=== PATIENT | female | born 1965 | race Caucasian/White ===

== ENCOUNTER 2022-04-21 16:53 | Inpatient (IN) ==
[2022-04-21] MEDS ORDERED: methylPREDNISolone SOD SUC 125 MG/2 ML VIAL IV STA (22:28)
[2022-04-21] MEDS ORDERED: FUROSEMIDE 100 MG/10 ML VIAL IV STA (22:28)
[2022-04-21] MEDS ORDERED: ONDANSETRON 4 MG/2 ML VIAL IV STA (22:28)
[2022-04-21] MEDS ORDERED: ALBUTEROL/IPRATROPIUM 3 ML NEB RESP TX STA (22:28)
[2022-04-21 23:27] LABS: Basophils % 0.1 % (0.0-0.8); Eosinophils % 0.1 % (0.00-10.9); Immature Granulocytes % 0.7 %; Immature Granulocytes Absolute 0.07 #; Lymphocytes # 1.3 10*3/uL (1.4-4.0); Lymphocytes % 13.2 % (21.3-54.2); Mean Corpuscular HGB Conc 34.3 GM/DL (32-36); Mean Corpuscular Volume 97.2 FL (87-102); Mean Platelet Volume 10.5 FL (9.6-12.0); Monocytes # 0.8 10*3/uL (0.11-0.8); Monocytes % 8.2 % (1.7-12.7); Neutrophils % 77.7 % (38.7-73.9); Platelet Count 241 T/CUMM (130-400); White Blood Count 9.9 T/CUMM (4-12)
[2022-04-21 23:50] LABS: Albumin 3.1 G/DL (3.4-5.0); Bilirubin,Total 1.3 MG/DL (0.20-1.00); Calcium 8.4 MG/DL (8.5-10.1); Osmolality,Calculated 275.7 MOS/KG (273-304); Potassium 4.3 MMOL/L (3.5-5.1); Total Protein 7.1 G/DL (6.4-8.2)
[2022-04-22] MEDS ORDERED: PIPERACILLIN/TAZOBACTAM 3,375 MG in SODIUM CHLORIDE 0.9% 100 ML IV STA (00:38)
[2022-04-22] MEDS ORDERED: ACETAMINOPHEN 325 MG TABLET PO PRN (03:26)
[2022-04-22] MEDS ORDERED: MORPHINE 2 MG/1 ML SYRINGE IV PRN (03:26)
[2022-04-22] MEDS ORDERED: ONDANSETRON 4 MG/2 ML VIAL IV PRN (03:26)
[2022-04-22] MEDS ORDERED: hydrALAZINE 20 MG/1 ML VIAL IV PRN (03:26)
[2022-04-22] MEDS ORDERED: GLUCAGON 1 MG VIAL IM PRN (03:26)
[2022-04-22] MEDS ORDERED: DEXTROSE 10% 250 ML BAG IV PRN (03:52)
[2022-04-22] MEDS: cefTRIAXone 1,000 MG in SODIUM CHLORIDE 0.9% 100 ML IV SCH (06:15)
[2022-04-22 06:23] LABS: Basophils % 0.1 % (0.0-0.8); Hematocrit 35.4 VOL% (35.7-47.0); Hemoglobin 12.2 GM/DL (12.0-16.0); Immature Granulocytes % 0.7 %; Immature Granulocytes Absolute 0.05 #; Lymphocytes # 0.6 10*3/uL (1.4-4.0); Lymphocytes % 7.5 % (21.3-54.2); Mean Corpuscular HGB Conc 34.5 GM/DL (32-36); Mean Corpuscular Volume 96.5 FL (87-102); Mean Platelet Volume 10.3 FL (9.6-12.0); Monocytes # 0.1 10*3/uL (0.11-0.8); Monocytes % 0.7 % (1.7-12.7); Platelet Count 244 T/CUMM (130-400); Red Blood Count 3.67 MC/CUMM (3.8-5.5); Red Cell Distribution Width 12.9 % (9.3-17.3); White Blood Count 7.6 T/CUMM (4-12)
[2022-04-22 06:44] LABS: Osmolality,Calculated 280.9 MOS/KG (273-304); Potassium 4.2 MMOL/L (3.5-5.1)
[2022-04-22] MEDS: AZITHROMYCIN INJ 500 MG in SODIUM CHLORIDE 0.9% 250 ML IV SCH (06:51)
[2022-04-22 06:56] LABS: Lymphocytes 7 % (20-55); Platelet Estimate Adequate; Total Cells Counted 100
[2022-04-22] MEDS: ALBUTEROL/IPRATROPIUM 3 ML NEB RESP TX SCH ×3 (07:00→19:35)
[2022-04-22] MEDS ORDERED: INSULIN LISPRO 100 UNIT/ML SUBCUT ONE (07:00)
[2022-04-22] MEDS ORDERED: INSULIN LISPRO 100 UNIT/ML SUBCUT SCH (07:30)
[2022-04-22 07:33] LABS: ABG Base Excess -4.5 MMOL/L (-2.5-2.5); ABG HCO3 20.6 MMOL/L (20-26); ABG Oxygen Saturation 93.6 % (95-100); ABG PCO2 32.7 MM HG (35-48); ABG PH 7.387 (7.35-7.45); ABG PO2 73.3 MM HG (80-95); ABG TCO2 17.6 MMOL/L (23-27)
[2022-04-22] MEDS: INSULIN LISPRO 100 UNIT/ML SUBCUT SCH ×4 (10:31→21:04)
[2022-04-22] MEDS: PANTOPRAZOLE 40 MG TABLET PO SCH (10:32)
[2022-04-22] MEDS ORDERED: ALBUTEROL/IPRATROPIUM 3 ML NEB RESP TX PRN (16:26)
[2022-04-22] MEDS: methylPREDNISolone SOD SUC 40 MG/1 ML VIAL IV SCH (17:52)
[2022-04-22] MEDS: ENOXAPARIN 40 MG/0.4 ML SYRINGE SUBCUT SCH (21:04)
[2022-04-22] MEDS: SIMVASTATIN 20 MG TABLET PO SCH (22:51)
[2022-04-23] MEDS: ALBUTEROL/IPRATROPIUM 3 ML NEB RESP TX SCH ×4 (00:05→20:37)
[2022-04-23] MEDS: methylPREDNISolone SOD SUC 40 MG/1 ML VIAL IV SCH ×4 (01:09→22:29)
[2022-04-23] MEDS: INSULIN LISPRO 100 UNIT/ML SUBCUT SCH ×6 (01:11→22:33)
[2022-04-23 03:55] LABS: Basophils % 0.1 % (0.0-0.8); Hematocrit 34.2 VOL% (35.7-47.0); Hemoglobin 11.8 GM/DL (12.0-16.0); Immature Granulocytes % 0.8 %; Immature Granulocytes Absolute 0.08 #; Lymphocytes # 0.8 10*3/uL (1.4-4.0); Lymphocytes % 7.2 % (21.3-54.2); Mean Corpuscular HGB Conc 34.5 GM/DL (32-36); Mean Corpuscular Volume 95.3 FL (87-102); Mean Platelet Volume 10.4 FL (9.6-12.0); Monocytes # 0.4 10*3/uL (0.11-0.8); Monocytes % 3.4 % (1.7-12.7); Neutrophils % 88.5 % (38.7-73.9); Platelet Count 283 T/CUMM (130-400); Red Blood Count 3.59 MC/CUMM (3.8-5.5); Red Cell Distribution Width 12.9 % (9.3-17.3); White Blood Count 10.4 T/CUMM (4-12)
[2022-04-23 04:14] LABS: Calcium 8.6 MG/DL (8.5-10.1); Osmolality,Calculated 294.7 MOS/KG (273-304); Potassium 3.7 MMOL/L (3.5-5.1)
[2022-04-23] MEDS: cefTRIAXone 1,000 MG in SODIUM CHLORIDE 0.9% 100 ML IV SCH (05:13)
[2022-04-23] MEDS: AZITHROMYCIN INJ 500 MG in SODIUM CHLORIDE 0.9% 250 ML IV SCH (05:42)
[2022-04-23] MEDS ORDERED: LEVOTHYROXINE 125 MCG TABLET PO SCH (06:30)
[2022-04-23] MEDS ORDERED: INSULIN LISPRO PROTAMINE/LISPRO 75/25 100 UNIT/ML SUBCUT SCH ×2 (07:30→16:30)
[2022-04-23] MEDS: PANTOPRAZOLE 40 MG TABLET PO SCH (08:43)
[2022-04-23] MEDS: CHOLECALCIFEROL 1,000 UNIT TABLET PO SCH (08:43)
[2022-04-23] MEDS: ASPIRIN CHEW 81 MG TABLET PO SCH (08:43)
[2022-04-23] MEDS: ISOSORBIDE MONONITRATE 60 MG TABLET PO SCH (08:44)
[2022-04-23] MEDS ORDERED: FUROSEMIDE 80 MG TABLET PO SCH (09:00)
[2022-04-23] MEDS ORDERED: lisinopriL 5 MG TABLET PO SCH (09:00)
[2022-04-23] MEDS: INSULIN LISPRO PROTAMINE/LISPRO 75/25 100 UNIT/ML SUBCUT SCH (16:55)
[2022-04-23] MEDS: ENOXAPARIN 40 MG/0.4 ML SYRINGE SUBCUT SCH (21:03)
[2022-04-23] MEDS: SIMVASTATIN 20 MG TABLET PO SCH (21:03)
[2022-04-24] MEDS: ALBUTEROL/IPRATROPIUM 3 ML NEB RESP TX SCH ×4 (02:03→19:20)
[2022-04-24] MEDS: INSULIN LISPRO 100 UNIT/ML SUBCUT SCH ×6 (02:35→21:14)
[2022-04-24] MEDS: methylPREDNISolone SOD SUC 40 MG/1 ML VIAL IV SCH ×2 (05:35→17:29)
[2022-04-24] MEDS: cefTRIAXone 1,000 MG in SODIUM CHLORIDE 0.9% 100 ML IV SCH (05:36)
[2022-04-24 05:45] LABS: Hematocrit 34.4 VOL% (35.7-47.0); Hemoglobin 11.6 GM/DL (12.0-16.0); Immature Granulocytes % 0.7 %; Immature Granulocytes Absolute 0.07 #; Lymphocytes # 1.1 10*3/uL (1.4-4.0); Lymphocytes % 11.2 % (21.3-54.2); Mean Corpuscular HGB Conc 33.7 GM/DL (32-36); Mean Corpuscular Volume 97.2 FL (87-102); Mean Platelet Volume 9.8 FL (9.6-12.0); Monocytes # 0.8 10*3/uL (0.11-0.8); Monocytes % 7.9 % (1.7-12.7); Neutrophils % 80.2 % (38.7-73.9); Platelet Count 315 T/CUMM (130-400); Red Blood Count 3.54 MC/CUMM (3.8-5.5); White Blood Count 10.1 T/CUMM (4-12)
[2022-04-24] MEDS: LEVOTHYROXINE 112 MCG TABLET PO SCH (05:49)
[2022-04-24] MEDS: AZITHROMYCIN INJ 500 MG in SODIUM CHLORIDE 0.9% 250 ML IV SCH (05:52)
[2022-04-24 06:03] LABS: Calcium 8.6 MG/DL (8.5-10.1); Osmolality,Calculated 296.1 MOS/KG (273-304); Potassium 3.4 MMOL/L (3.5-5.1)
[2022-04-24] MEDS: ISOSORBIDE MONONITRATE 60 MG TABLET PO SCH (09:40)
[2022-04-24] MEDS: CHOLECALCIFEROL 1,000 UNIT TABLET PO SCH (09:40)
[2022-04-24] MEDS: INSULIN LISPRO PROTAMINE/LISPRO 75/25 100 UNIT/ML SUBCUT SCH ×2 (09:40→17:47)
[2022-04-24] MEDS: PANTOPRAZOLE 40 MG TABLET PO SCH (09:40)
[2022-04-24] MEDS: ASPIRIN CHEW 81 MG TABLET PO SCH (09:40)
[2022-04-24] MEDS: SODIUM CHLORIDE 0.9% 1,000 ML IV SCH (09:48)
[2022-04-24] MEDS ORDERED: BENZONATATE 100 MG CAPSULE PO PRN (14:42)
[2022-04-24] MEDS: ENOXAPARIN 30 MG/0.3 ML SYRINGE SUBCUT SCH (21:14)
[2022-04-24] MEDS: SIMVASTATIN 20 MG TABLET PO SCH (21:14)
[2022-04-25] MEDS: ALBUTEROL/IPRATROPIUM 3 ML NEB RESP TX SCH ×5 (00:18→23:40)
[2022-04-25] MEDS: SODIUM CHLORIDE 0.9% 1,000 ML IV SCH ×2 (00:30→14:58)
[2022-04-25] MEDS: INSULIN LISPRO 100 UNIT/ML SUBCUT SCH ×6 (02:44→20:57)
[2022-04-25 05:27] LABS: Basophils % 0.2 % (0.0-0.8); Hematocrit 34.4 VOL% (35.7-47.0); Hemoglobin 11.4 GM/DL (12.0-16.0); Immature Granulocytes % 1.1 %; Immature Granulocytes Absolute 0.07 #; Lymphocytes # 0.9 10*3/uL (1.4-4.0); Lymphocytes % 13.9 % (21.3-54.2); Mean Corpuscular HGB Conc 33.1 GM/DL (32-36); Monocytes # 0.6 10*3/uL (0.11-0.8); Monocytes % 8.5 % (1.7-12.7); Neutrophils % 76.3 % (38.7-73.9); Platelet Count 300 T/CUMM (130-400); Red Blood Count 3.51 MC/CUMM (3.8-5.5); Red Cell Distribution Width 13.2 % (9.3-17.3); White Blood Count 6.6 T/CUMM (4-12)
[2022-04-25 05:48] LABS: Alanine Aminotransferase 15 U/L (13-56); Albumin 2.6 G/DL (3.4-5.0); Alkaline Phosphatase 77 U/L (45-117); Aspartate Amino Transferase 13 U/L (0-37); Bilirubin,Total < 0.39 MG/DL (0.20-1.00); Blood Urea Nitrogen 71 MG/DL (7-18); Calcium 8.2 MG/DL (8.5-10.1); Carbon Dioxide 28 MMOL/L (21-32); Chloride 104 MMOL/L (98-107); Glucose 148 MG/DL (74-106); Osmolality,Calculated 304.3 MOS/KG (273-304); Potassium 3.9 MMOL/L (3.5-5.1); Sodium 141 MMOL/L (136-145); Total Protein 6.1 G/DL (6.4-8.2)
[2022-04-25] MEDS: methylPREDNISolone SOD SUC 40 MG/1 ML VIAL IV SCH (06:24)
[2022-04-25] MEDS: cefTRIAXone 1,000 MG in SODIUM CHLORIDE 0.9% 100 ML IV SCH (06:24)
[2022-04-25] MEDS: LEVOTHYROXINE 112 MCG TABLET PO SCH (06:25)
[2022-04-25] MEDS: AZITHROMYCIN INJ 500 MG in SODIUM CHLORIDE 0.9% 250 ML IV SCH (06:31)
[2022-04-25] MEDS: CHOLECALCIFEROL 1,000 UNIT TABLET PO SCH (09:05)
[2022-04-25] MEDS: INSULIN LISPRO PROTAMINE/LISPRO 75/25 100 UNIT/ML SUBCUT SCH ×2 (09:05→16:42)
[2022-04-25] MEDS: ISOSORBIDE MONONITRATE 60 MG TABLET PO SCH (09:05)
[2022-04-25] MEDS: PANTOPRAZOLE 40 MG TABLET PO SCH (09:05)
[2022-04-25] MEDS: ASPIRIN CHEW 81 MG TABLET PO SCH (09:05)
[2022-04-25] MEDS ORDERED: FUROSEMIDE 20 MG/2 ML VIAL IV ONE (14:08)
[2022-04-25] MEDS: carvediloL 25 MG TABLET PO SCH (16:42)
[2022-04-25] MEDS: SIMVASTATIN 20 MG TABLET PO SCH (20:57)
[2022-04-25] MEDS: ENOXAPARIN 30 MG/0.3 ML SYRINGE SUBCUT SCH (20:57)
[2022-04-26] MEDS: INSULIN LISPRO 100 UNIT/ML SUBCUT SCH ×3 (02:55→11:38)
[2022-04-26] MEDS ORDERED: methylPREDNISolone SOD SUC 40 MG/1 ML VIAL IV SCH (05:00)
[2022-04-26 05:58] LABS: Basophils % 0.4 % (0.0-0.8); Eosinophils % 0.1 % (0.00-10.9); Hematocrit 35.4 VOL% (35.7-47.0); Immature Granulocytes % 2.1 %; Immature Granulocytes Absolute 0.18 #; Lymphocytes # 2.5 10*3/uL (1.4-4.0); Lymphocytes % 29.8 % (21.3-54.2); Mean Corpuscular HGB Conc 33.9 GM/DL (32-36); Mean Corpuscular Volume 97.5 FL (87-102); Mean Platelet Volume 9.8 FL (9.6-12.0); Monocytes # 0.8 10*3/uL (0.11-0.8); Monocytes % 9.9 % (1.7-12.7); Neutrophils % 57.7 % (38.7-73.9); Platelet Count 320 T/CUMM (130-400); Red Blood Count 3.63 MC/CUMM (3.8-5.5); Red Cell Distribution Width 13.3 % (9.3-17.3); White Blood Count 8.5 T/CUMM (4-12)
[2022-04-26] MEDS: LEVOTHYROXINE 112 MCG TABLET PO SCH (05:59)
[2022-04-26] MEDS: cefTRIAXone 1,000 MG in SODIUM CHLORIDE 0.9% 100 ML IV SCH (05:59)
[2022-04-26] MEDS: AZITHROMYCIN INJ 500 MG in SODIUM CHLORIDE 0.9% 250 ML IV SCH (06:00)
[2022-04-26 06:15] LABS: Calcium 8.1 MG/DL (8.5-10.1); Potassium 3.5 MMOL/L (3.5-5.1)
[2022-04-26] MEDS: ALBUTEROL/IPRATROPIUM 3 ML NEB RESP TX SCH ×2 (07:11→12:57)
[2022-04-26] MEDS ORDERED: ISOSORBIDE MONONITRATE 60 MG TABLET PO SCH (09:00)
[2022-04-26] MEDS ORDERED: ASPIRIN EC 81 MG TABLET PO SCH (09:00)
[2022-04-26] MEDS: PANTOPRAZOLE 40 MG TABLET PO SCH (09:31)
[2022-04-26] MEDS: ISOSORBIDE MONONITRATE 60 MG TABLET PO SCH (09:31)
[2022-04-26] MEDS: INSULIN LISPRO PROTAMINE/LISPRO 75/25 100 UNIT/ML SUBCUT SCH (09:31)
[2022-04-26] MEDS: CHOLECALCIFEROL 1,000 UNIT TABLET PO SCH (09:31)
[2022-04-26] MEDS: carvediloL 25 MG TABLET PO SCH (09:31)
[2022-04-26 11:27] VITALS: BP 121/77
[2022-04-26] MEDS ORDERED: INSULIN LISPRO PROTAMINE/LISPRO 75/25 100 UNIT/ML SUBCUT SCH (16:30)
[2022-04-27] MEDS ORDERED: INSULIN LISPRO PROTAMINE/LISPRO 75/25 100 UNIT/ML SUBCUT SCH (07:30)
== END 2022-04-26 14:24 | disposition home or self-care (01) | DRG 194 ==
LOC: N.ED 16:53 → N.EDINP 04-22 03:26 → N.5E 04-22 11:42
PROVIDERS: ADMIT Internal Medicine; ATTEND Internal Medicine